=== PATIENT | male | born 1995 | race African-American/Black ===

== ENCOUNTER 2016-05-25 13:51 | Emergency (ER) | payer MEDICAID ==
[~2016-05-25] VITALS: Ht 177.8 cm; Wt 90.7 kg
[2016-05-25 14:15] VITALS: BP 131/74
[2016-05-25] MEDS ORDERED: methylPREDNISolone SOD SUCC 125 MG/2 ML VL IM ONE (14:45)
[2016-05-25] MEDS ORDERED: diphenhdrAMINE HCL 50 MG/1 ML VL IM ONE (14:45)
== END 2016-05-25 15:23 | disposition home or self-care (01) ==
LOC: ER 13:55
DX: F41.1 Generalized anxiety disorder (principal); F17.210 Nicotine dependence, cigarettes, uncomplicated; Z76.0 Encounter for issue of repeat prescription
CPT/HCPCS: 96372; 99284; J1200; J2930

== ENCOUNTER 2019-04-09 11:04 | Emergency (ER) | payer MEDICAID, OTHER ==
[~2019-04-09] VITALS: Ht 182.9 cm; Wt 104.3 kg
[2019-04-09 11:28] VITALS: BP 123/70
== END 2019-04-09 12:22 | disposition home or self-care (01) ==
LOC: ER 11:08
DX: F41.9 Anxiety disorder, unspecified (principal); Z76.0 Encounter for issue of repeat prescription

== ENCOUNTER 2021-09-21 17:24 | Emergency (ER) | payer MEDICAID, OTHER ==
[~2021-09-21] VITALS: Ht 180.3 cm; Wt 103.4 kg
[2021-09-21 18:18] VITALS: BP 111/57
[2021-09-21 18:36] LABS: Urine Bacteria NONE SEEN /hpf (None Seen); Urine Blood Negative /uL (Negative); Urine Specific Gravity 1.005 (1.001-1.035); Urine WBC <1 /hpf (0 - 3)
[2021-09-21 22:50] LABS: Basophils # (auto) 0 10 ^3/uL (0-0.2); Basophils % (auto) 0.4 % (0.0-2.0); Eosinophils # (auto) 0.1 10 ^3/uL (0-0.8); Hematocrit 44.1 % (41.0-53.0); Hemoglobin 15.2 g/dL (13.5-17.5); Lymphocytes # (auto) 2.9 10 ^3/uL (0.4-5.4); Lymphocytes % (auto) 37.7 % (10.0-50.0); Mean Corpuscular Hemoglobin 28.9 pg (28.0-32.0); Mean Corpuscular Hgb Conc. 34.4 g/dL (32.0-36.0); Monocytes # (auto) 0.7 10 ^3/uL (0-1.3); Monocytes % (auto) 9.6 % (0.0-12.0); Neutrophils % (auto) 51.3 % (37.0-80.0); Nucleated Red Blood Cells % 0.9 %; Red Blood Cells 5.25 10^6/uL (4.5-5.90); Red Cell Distribution Width 12.6 % (11.8-14.3); White Blood Cell 7.7 10^3/uL (4.4-10.8)
[2021-09-21] MEDS ORDERED: AMOX500T86 PO (22:53)
[2021-09-21] MEDS ORDERED: PERCOT PO (22:53)
[2021-09-21] MEDS ORDERED: ONDA-144 PO (22:53)
[2021-09-21] MEDS ORDERED: PRED20TA2 PO (22:53)
[2021-09-21 23:13] LABS: Albumin 4.3 g/dL (3.4-5.0); Calcium 9.5 mg/dL (8.5-10.1); Potassium 3.7 mmol/L (3.5-5.1)
[2021-09-21 23:16] LABS: Bilirubin, Total 0.9 mg/dL (0.2-1.0)
== END 2021-09-22 01:15 | disposition left against medical advice (07) ==
LOC: ER 17:24
DX: K29.70 Gastritis, unspecified, without bleeding (principal); J02.9 Acute pharyngitis, unspecified; F17.210 Nicotine dependence, cigarettes, uncomplicated
CPT/HCPCS: 36415; 74176; 80053; 81001; 83690; 85025